=== PATIENT | female | born 1990 ===

== ENCOUNTER 2017-02-02 16:04 | Emergency (ER) | payer MEDICAID, OTHER ==
[2017-02-02 16:04] VITALS: BMI 26.7
--- NOTE | 2017-02-02 17:32 | C.PDOC ---
History Of Present Illness 26 y/o female presents to the ED with complaints of left knee pain and swelling s/p fall. Pt states she slipped and fell landing on her knee. Pt history of left knee problems. Denies weakness, numbness or any other injury. Time Seen by Provider: 02/02/17 16:50 Chief Complaint (Nursing): Lower Extremity Problem/Injury History Per: Patient History/Exam Limitations: no limitations Onset/Duration Of Symptoms: Hrs Current Symptoms Are (Timing): Still Present Severity: Mild Recent travel outside of the [place]: No - Knee Description Of Injury: Fell Past Medical History Reviewed: Historical Data, Nursing Documentation, Vital Signs Vital Signs: Last Vital Signs Temp 97.9 F 02/02/17 17:56 Pulse 66 02/02/17 17:56 Resp 20 02/02/17 17:56 BP 126/79 02/02/17 17:56 Pulse Ox 100 02/02/17 17:56 - Medical History PMH: Denies: Depression - [facility] Procedures APPLICATION OF SPLINT (04/06/04) INJECT ANTIBIOTIC (09/24/04) INJECT/INFUSE NEC (01/16/15) OTH WOUND IRRIGATION (04/06/04) Family History: States: Unknown Family Hx - Social History Hx Tobacco Use: Yes Hx Alcohol Use: Yes Hx Substance Use: No - Immunization History Hx Tetanus Toxoid Vaccination: No Hx Influenza Vaccination: No Hx Pneumococcal Vaccination: No Review Of Systems Musculoskeletal: Positive for: Other (left knee pain and swelling) Neurological: Negative for: Weakness, Numbness Physical Exam - Physical Exam Appears: Non-toxic, No Acute Distress Skin: Warm, Dry, No Rash Extremity: No Calf Tenderness, Capillary Refill (<2 seconds), No Deformity, Swelling (minimal swelling proximal to left patella), Other (painful ROM left knee) Pulses: Left Dorsalis Pedis: Normal Neurological/Psych: Oriented x3, Normal Speech, Normal Motor, Normal Sensation ED Course And Treatment O2 Sat by Pulse Oximetry: 98 (room air) Pulse Ox Interpretation: Normal Medical Decision Making Medical Decision Making: no fx noted on xray, small prepatellar effusion. will d/c with knee brace, nsaids and clinic f/u Disposition Counseled Patient/Family Regarding: Studies Performed, Diagnosis, Need For Followup, Rx Given - Disposition Referrals: [facility] [Outside] [facility] [Outside] Disposition: HOME/ ROUTINE Disposition Time: 18:11 Condition: STABLE Additional Instructions: Wear knee brace for comfort. Ibuprofen 600 mg by mouth every 6 hours for pain; take with food. Follow up in medical clinic in a few days. Apply cold compress to knee several times a day. Instructions: Swollen Knee Joint (ED) Forms: General Discharge Instructions - Clinical Impression Clinical Impression: Knee injury - PA / [employer] / Resident Statement MD/DO has reviewed & agrees with the documentation as recorded. - Scribe Statement The provider has reviewed the documentation as recorded by the Scribe Tripp jane All medical record entries made by the Scribmina were at my direction and personally dictated by me. I have reviewed the chart and agree that the record accurately reflects my personal performance of the history, physical exam, medical decision making, and the department course for this patient. I have also personally directed, reviewed, and agree with the discharge instructions and disposition.
--- NOTE | 2017-02-02 17:47 | RAD ---
PROCEDURE: Left Knee Radiographs. HISTORY: COMPARISON: None available. FINDINGS: BONES: No acute displaced fracture. JOINTS: No dislocation. JOINT EFFUSION: Small suprapatellar joint effusion. OTHER FINDINGS: None. IMPRESSION: Small suprapatellar joint effusion. No acute displaced fracture or dislocation identified. If symptoms persist, or if there is continued clinical concern, x-ray follow-up in 7-10 days should be considered.
[2017-02-02 17:56] VITALS: BP 126/79; PULSE 66; RESP 20; TEMP 97.9
[2017-02-02 18:11] VITALS: O2SAT 98
== END 2017-02-02 18:20 | disposition home or self-care (01) ==
LOC: C.ER 16:04
DX: S89.92XA Unspecified injury of left lower leg, initial encounter (principal); W01.0XXA Fall on same level from slipping, tripping and stumbling without subsequent striking against object, initial encounter; Y92.9 Unspecified place or not applicable